=== PATIENT | male | born 1980 | race Caucasian/White ===

== ENCOUNTER 2016-10-13 02:44 | Emergency (ER) | payer MEDICAID ==
[2016-10-13 02:49] VITALS: BP 134/86; PULSE 80; RESP 16; TEMP 98.4; O2SAT 93
--- NOTE | 2016-10-13 03:17 | EDPHY ---
H & P Stated Complaint: knee pain, seen at , told sprained, wants MRI HPI/ROS: HPI CHIEF COMPLAINT: Knee pain, I want an MRI HISTORY OF PRESENT ILLNESS: This patient very pleasant 36-year-old male significant past medical history for spontaneous pneumothorax, as well as also colitis, presents to the emergency room with ongoing knee pain x1 month. Tells me that he is here because he would like an MRI of his knee. He tells me earlier in the week he was recently seen at [facility]gent [facility] and had an x-ray was diagnosed with a left knee sprain. Tells me he is able to ambulate on he has no difficulty walking. He tells me his pain is not extreme. He is requesting an MRI to see if he has ligamentous injury. Patient tells me that he injured it a month ago by falling on it. Past Medical History: Ulcerative colitis, spontaneous pneumothorax Past Surgical History: VATS procedure Social History: smokes tobacco, smokes marijuana, denies illicit drugs or alcohol Family History: Noncontributory ROS REVIEW OF SYSTEMS: A comprehensive 10 point review of systems is otherwise negative aside from elements mentioned in the history of present illness. Exam Constitutional triage nursing summary reviewed, vital signs reviewed, awake/ alert. Eyes normal conjunctivae and sclera, EOMI, PERRLA. HENT normal inspection, atraumatic, moist mucus membranes, no epistaxis, neck supple/ no meningismus, no raccoon eyes. Respiratory clear to auscultation bilaterally, normal breath sounds, no respiratory distress, no wheezing. Cardiovascular rate normal, regular rhythm, no murmur, no edema, distal pulses normal. Gastrointestinal soft, non-tender, no rebound, no guarding, normal bowel sounds, no distension, no pulsatile mass. Genitourinary no CVA tenderness. Musculoskeletal left knee: Full range of motion, negative anterior posterior drawer sign, no tenderness with exam. Able to bear weight without difficulty. Full range of motion. Distally neurovascularly intact. no midline vertebral tenderness, full range of motion, no calf swelling, no tenderness of extremities , no meningismus, good pulses, neurovascularly intact. Skin pink, warm, & dry, no rash, skin atraumatic. Neurologic awake, alert and oriented x 3, AAOx3, moves all 4 extremities equally, motor intact, sensory intact, CN II-XII intact, normal cerebellar, normal vision, normal speech. Psychiatric normal mood/affect. Heme/Lymph/Immune no lymphadenopathy. Differential Diagnosis: Includes but is not limited to in a particular order knee sprain, knee contusion, ligamentous injury meniscal injury Medical Decision Making: After lengthy discussion with this patient I did recommend that he follows up with Orthopedics outpatient for an MRI of his knee and knee evaluation for knees pain. He has declined any further imaging here in the emergency room specifically declined x-ray of his knee. He would like a prescription for ibuprofen which I will provide him. He also understands to follow up with Orthopedics which I have referred him to. I explained I cannot get him an MRI in the middle night for 1 month of knee pain without any significant new acute trauma. He understands he should follow up with Orthopedics they can evaluate his knee determine if he needs an MRI. He understands this and agreeable for this plan. Patient understands to take Tylenol for pain control. Ice his knee. Knee immobilizer has been given to him. Source: Patient - Personal History Current Tetanus/Diphtheria Vaccine: No - Medical/Surgical History Hx Asthma: No Hx Chronic Respiratory Disease: No Hx Diabetes: No Hx Cardiac Disease: Yes Hx Renal Disease: No Hx Cirrhosis: No Hx Alcoholism: No Hx HIV/AIDS: No Hx Splenectomy or Spleen Trauma: Yes Other PMH: hx mult pneumothorax, ulcerative colitis, TMJ, ANXIETY, DEPRESSION, PTSD - Social History Smoking Status: Current every day smoker Constitutional: Initial Vital Signs Temperature (C) 36.9 C 10/13/16 02:46 Heart Rate 80 10/13/16 02:46 Respiratory Rate 16 10/13/16 02:46 Blood Pressure 134/86 H 10/13/16 02:46 O2 Sat (%) 93 10/13/16 02:46 O2 Delivery Mode Room Air Allergies/Adverse Reactions: No Known Allergies Allergy (Unverified 12/03/15 01:02) Home Medications: Medication Instructions Recorded MARINOL 10/13/16 Departure - Departure Disposition: Home, Routine, Self-Care Clinical Impression: Left knee pain Qualifiers: Chronicity: acute Qualifier Code: (M25.562) Pain in left knee Condition: Good Instructions: Arthralgia (ED), Knee Pain (ED) Additional Instructions: 1.Take Tylenol for her pain. Take this for the next 3-5 days. 2. stay well-hydrated. 3.Call Orthopedics to make a follow-up appointment. Referrals: NONE *PRIMARY CARE P,. [Primary Care Provider] - As per Instructions Darrick Goodwin MD [Medical Doctor] - As per Instructions
== END 2016-10-13 03:44 | disposition home or self-care (01) ==
DX: M25.562 Pain in left knee (principal); F17.200 Nicotine dependence, unspecified, uncomplicated
CPT/HCPCS: L1830